=== PATIENT | female | born 1960 | race Caucasian/White ===

== ENCOUNTER 2017-02-28 17:42 | Inpatient (IN) | payer OTHER, SELFPAY ==
[~2017-02-28 17:42] MED LIST: ALLEGRA180 MG; ARTHRITIS PAIN650 M6 PO; CALCIUM 500 +1 EAC7 PO; CALCIUM500 M3 PO; CARBATROL200 MG; COZAAR25 M1 PO; DEPAKOTE ER500 MG; DEPAKOTE ER500 MG PO; DEPO-MEDROL IM; DICLOFENAC SODI75 M2 PO; DIOVAN HCT 160/1 TAB; EC-NAPROSYN500 MG; ESTRACE2 M2 PO; ESTRADIOL1 MG; ESTRADIOL2 MG; FOLIC ACID1 M1 PO; GLUCOSAMINE CH PO; GLUCOSAMINE CH1 EA13 PO; GUMMI BEAR MUL1 EAC1 PO; HUMIRA40 MG/0.1; HUMIRA40 MG/0.2 SC; HYDROCHLOROTHIA25 M1 PO; LEVOTHROID25 MCG; LEVOTHYROXINE25 MC3 PO; LYSINE PO; METHOTREXATE; NAPROXEN SODIU550 MG; PERCOCET 5-3251 EACH PO; PREDNISONE20 M1 PO; PREDNISONE5 MG; PRILOSEC20 M1 PO; PRILOSEC20 MG; PROAIR HFA8.5 GM IH; RITUXAN100 MG/10; TREXALL15 MG; VITAMIN D2000 UNI1 PO; XELJANZ XR11 MG PO; ZOFRAN ODT4 MG/UDTAB PO; ZOFRAN ODT8 MG PO; ZYRTEC10 M7 PO
[2017-02-28] MEDS ORDERED: ACTEMRA162 MG/0.1 SC (18:14)
[2017-02-28 18:59] LABS: HGB-HEMOGLOBIN 15.1 gm/dl (12.0-15.5); MCH (MEAN CORPUSCULAR HGB) 29.3 pg (28.0-32.0); MCHC MEAN CORPUSCULAR HGB CONC 34.3 % (32.0-36.0); MCV (MEAN CELL VOLUME) 85.4 fl (82.0-96.0); MEAN PLATELET VOLUME 9.8 cmc (9.4-12.4); PLATELET COUNT 410 tho/cmm (150-450); RED BLOOD COUNT 5.15 mil/cmm (4.00-5.20); RED CELL DISTRIBUTION WIDTH 15.4 % (12.4-16.4); WHITE BLOOD COUNT 24.1 tho/cmm (4.0-10.0)
[2017-02-28 19:05] LABS: URINE BILIRUBIN NEGATIVE (NEG); URINE BLOOD NEGATIVE (NEG); URINE GLUCOSE (UA) NEGATIVE (NEG); URINE KETONE NEGATIVE (NEG); URINE LEUKOCYTE ESTERASE NEGATIVE (NEG); URINE NITRITE NEGATIVE (NEG); URINE PROTEIN NEGATIVE (NEG); URINE SPECIFIC GRAVITY 1.005 (1.003-1.030)
[2017-02-28 19:10] LABS: ALBUMIN 3.7 g/dl (3.5-5.0); ALKALINE PHOSPHATASE 69 U/L (33-138); ALT/SGPT 22 U/L (12-78); ANION GAP 16 mmol/L (0-20); AST/SGOT 15 U/L (10-40); BILIRUBIN,TOTAL 0.5 mg/dl (0-1.5); BLOOD UREA NITROGEN 11 mg/dl (6-24); CALCIUM 8.8 mg/dl (8.5-10.5); CARBON DIOXIDE-VENOUS 25 mmol/L (22-32); CHLORIDE 101 mmol/l (96-110); CREATININE 0.75 mg/dl (0.50-1.10); GLUCOSE 87 mg/dL (70-110); LIPASE 87 U/L (73-393); POTASSIUM 3.6 mmol/L (3.7-5.1); SODIUM 138 mmol/L (135-145); eGFR VALUE FOR BLACK >90 mL/Min
[2017-02-28 19:10] LABS: URINE APPEARANCE CLEAR; URINE COLOR YELLOW
[2017-02-28 19:15] LABS: BAND % 12 % (0-20); BAND ABSOLUTE COUNT 2.9 tho/cmm (0-2.0)
[2017-02-28] MEDS ORDERED: BYSTOLIC5 M1 PO (22:24)
[2017-03-01 00:30] LABS: C-REACTIVE PROTEIN 0.9 mg/dl (0-0.9); MAGNESIUM 1.8 mg/dl (1.8-2.6)
[2017-03-01 00:41] LABS: PROCALCITONIN <0.05 ng/ml (0.05-0.09)
[2017-03-01 04:42] LABS: ANION GAP 13 mmol/L (0-20); BLOOD UREA NITROGEN 8 mg/dl (6-24); CALCIUM 7.6 mg/dl (8.5-10.5); CARBON DIOXIDE-VENOUS 29 mmol/L (22-32); CHLORIDE 103 mmol/l (96-110); CREATININE 0.76 mg/dl (0.50-1.10); GLUCOSE 100 mg/dL (70-110); SODIUM 141 mmol/L (135-145); eGFR VALUE FOR BLACK >90 mL/Min
[2017-03-01 04:50] LABS: BASO % 0.3 % (0-2); BASO ABSOLUTE COUNT 0.1 tho/cmm (0.0-0.2); EOS % 0.7 % (0-7); EOSINOPHIL ABSOLUTE COUNT 0.1 tho/cmm (0.0-0.7); HCT-HEMATOCRIT 38.3 % (34.0-49.0); HGB-HEMOGLOBIN 12.6 gm/dl (12.0-15.5); IMMATURE GRANULOCYTES ABSOLUTE 0.04 tho/cmm (0-0.03); IMMATURE GRANULOCYTES PERCENT 0.2 % (0-0.3); LYMPH ABSOLUTE COUNT 1.1 tho/cmm (0.8-4.5); MCH (MEAN CORPUSCULAR HGB) 28.6 pg (28.0-32.0); MCHC MEAN CORPUSCULAR HGB CONC 32.9 % (32.0-36.0); MCV (MEAN CELL VOLUME) 86.8 fl (82.0-96.0); MEAN PLATELET VOLUME 9.6 cmc (9.4-12.4); MONO % 5.1 % (0-12); MONOCYTE ABSOLUTE COUNT 0.8 tho/cmm (0.0-1.2); NEUTROPHIL ABSOLUTE COUNT 14.1 tho/cmm (1.6-8.0); NEUTROPHIL-AUTOMATED 14.1 tho/cmm (1.6-8.0); NEUTROPHILS % 86.7 % (40-80); PLATELET COUNT 364 tho/cmm (150-450); RED BLOOD COUNT 4.41 mil/cmm (4.00-5.20); RED CELL DISTRIBUTION WIDTH 15.5 % (12.4-16.4); WHITE BLOOD COUNT 16.3 tho/cmm (4.0-10.0)
[2017-03-01 04:59] LABS: POTASSIUM 4.3 mmol/L (3.7-5.1)
[2017-03-01] MEDS ORDERED: PREDNISONE5 M1 PO (10:48)
[2017-03-02 04:32] LABS: BASO % 0.6 % (0-2); BASO ABSOLUTE COUNT 0.1 tho/cmm (0.0-0.2); EOS % 1.1 % (0-7); EOSINOPHIL ABSOLUTE COUNT 0.2 tho/cmm (0.0-0.7); HGB-HEMOGLOBIN 13.2 gm/dl (12.0-15.5); IMMATURE GRANULOCYTES ABSOLUTE 0.03 tho/cmm (0-0.03); IMMATURE GRANULOCYTES PERCENT 0.2 % (0-0.3); LYMPH % 15.2 % (20-45); LYMPH ABSOLUTE COUNT 2.1 tho/cmm (0.8-4.5); MCH (MEAN CORPUSCULAR HGB) 28.6 pg (28.0-32.0); MCV (MEAN CELL VOLUME) 86.8 fl (82.0-96.0); MEAN PLATELET VOLUME 9.6 cmc (9.4-12.4); MONO % 8.3 % (0-12); MONOCYTE ABSOLUTE COUNT 1.1 tho/cmm (0.0-1.2); NEUTROPHIL ABSOLUTE COUNT 10.2 tho/cmm (1.6-8.0); NEUTROPHIL-AUTOMATED 10.2 tho/cmm (1.6-8.0); NEUTROPHILS % 74.6 % (40-80); PLATELET COUNT 342 tho/cmm (150-450); RED BLOOD COUNT 4.61 mil/cmm (4.00-5.20); RED CELL DISTRIBUTION WIDTH 15.8 % (12.4-16.4); WHITE BLOOD COUNT 13.6 tho/cmm (4.0-10.0)
[2017-03-02 04:38] LABS: ANION GAP 12 mmol/L (0-20); BLOOD UREA NITROGEN 10 mg/dl (6-24); CALCIUM 7.7 mg/dl (8.5-10.5); CARBON DIOXIDE-VENOUS 24 mmol/L (22-32); CHLORIDE 106 mmol/l (96-110); CREATININE 0.71 mg/dl (0.50-1.10); GLUCOSE 94 mg/dL (70-110); SODIUM 138 mmol/L (135-145); eGFR VALUE FOR BLACK >90 mL/Min
[2017-03-02 05:10] LABS: POTASSIUM 3.8 mmol/L (3.7-5.1)
[2017-03-03 04:35] LABS: BASO % 0.6 % (0-2); BASO ABSOLUTE COUNT 0.1 tho/cmm (0.0-0.2); EOS % 2.1 % (0-7); EOSINOPHIL ABSOLUTE COUNT 0.2 tho/cmm (0.0-0.7); HGB-HEMOGLOBIN 11.5 gm/dl (12.0-15.5); IMMATURE GRANULOCYTES ABSOLUTE 0.02 tho/cmm (0-0.03); IMMATURE GRANULOCYTES PERCENT 0.3 % (0-0.3); LYMPH ABSOLUTE COUNT 1.4 tho/cmm (0.8-4.5); MCH (MEAN CORPUSCULAR HGB) 28.6 pg (28.0-32.0); MCHC MEAN CORPUSCULAR HGB CONC 32.9 % (32.0-36.0); MCV (MEAN CELL VOLUME) 87.1 fl (82.0-96.0); MEAN PLATELET VOLUME 9.1 cmc (9.4-12.4); MONO % 12.2 % (0-12); NEUTROPHIL ABSOLUTE COUNT 5.3 tho/cmm (1.6-8.0); NEUTROPHIL-AUTOMATED 5.3 tho/cmm (1.6-8.0); NEUTROPHILS % 66.8 % (40-80); PLATELET COUNT 346 tho/cmm (150-450); RED BLOOD COUNT 4.02 mil/cmm (4.00-5.20); RED CELL DISTRIBUTION WIDTH 15.6 % (12.4-16.4)
[2017-03-03 04:48] LABS: ANION GAP 12 mmol/L (0-20); BLOOD UREA NITROGEN 5 mg/dl (6-24); CALCIUM 6.9 mg/dl (8.5-10.5); CARBON DIOXIDE-VENOUS 25 mmol/L (22-32); CHLORIDE 108 mmol/l (96-110); CREATININE 0.66 mg/dl (0.50-1.10); GLUCOSE 95 mg/dL (70-110); POTASSIUM 3.1 mmol/L (3.7-5.1); SODIUM 142 mmol/L (135-145); eGFR VALUE FOR BLACK >90 mL/Min
[2017-03-05 05:32] LABS: ANION GAP 9 mmol/L (0-20); BLOOD UREA NITROGEN 3 mg/dl (6-24); CALCIUM 7.9 mg/dl (8.5-10.5); CARBON DIOXIDE-VENOUS 30 mmol/L (22-32); CHLORIDE 107 mmol/l (96-110); CREATININE 0.64 mg/dl (0.50-1.10); GLUCOSE 107 mg/dL (70-110); POTASSIUM 3.4 mmol/L (3.7-5.1); SODIUM 143 mmol/L (135-145); eGFR VALUE FOR BLACK >90 mL/Min
[2017-03-05 10:00] LABS: MAGNESIUM 2.1 mg/dl (1.8-2.6)
[2017-03-05 10:03] LABS: TSH-THYROID STIMULATING HORM. 3.12 uIU/ml (0.40-3.80)
[2017-03-05] MEDS ORDERED: FLAGYL500 M1 PO (11:17)
[2017-03-05] MEDS ORDERED: LOPRESSOR50 M1 PO (11:18)
[2017-03-05] MEDS ORDERED: LOPERAMIDE2 M3 PO (11:24)
[2017-05-11] MEDS ORDERED: DICLOFENAC SODI75 M2 PO (14:18)
[2017-05-11] MEDS ORDERED: CELEBREX200 M1 PO (14:18)
[2017-05-11] MEDS ORDERED: LOPERAMIDE2 M2 PO (15:25)
[2017-05-11] MEDS ORDERED: PREDNISONE5 M1 PO (15:25)
[2017-08-03] MEDS ORDERED: PREVALITE PACKET4 GM PO (09:30)
[2017-08-03] MEDS ORDERED: DICLOFENAC SODI75 M2 PO (09:33)
[2017-08-04] MEDS ORDERED: BENTYL10 M1 PO (14:59)
[2017-08-04] MEDS ORDERED: VANCOMYCIN HCL500 MG PO (14:59)
== END 2017-03-05 12:28 | DRG 395 ==
LOC: EDMED 17:42 → EMR2 23:08 → 5WF 03-01 00:05 → PCUB 03-04 17:15
PROVIDERS: Emergency Medicine; Family Medicine; Internal Medicine; Internal Medicine Interventional Cardiology; Physician Assistant; ADMIT Hospitalist
PROC: 0DBG8ZX Excision of Left Large Intestine, Via Natural or Artificial Opening Endoscopic, Diagnostic (ICD-10-PCS; principal; 2017-03-02)
DX: K55.9 Vascular disorder of intestine, unspecified (principal); I48.0 Paroxysmal atrial fibrillation; I10 Essential (primary) hypertension; M06.9 Rheumatoid arthritis, unspecified; E74.10 Disorder of fructose metabolism, unspecified; J45.909 Unspecified asthma, uncomplicated; E87.6 Hypokalemia; Z88.5 Allergy status to narcotic agent; Z79.899 Other long term (current) drug therapy
CPT/HCPCS: G0500; J1170; J1956; J2250; J2405; J2543; J3010; J3475; J7030; Q9967

== ENCOUNTER 2017-04-11 12:36 | Inpatient (IN) | payer OTHER, SELFPAY ==
[~2017-04-11 12:36] MED LIST changes: +ACTEMRA162 MG/0.1 SC; +BYSTOLIC5 M1 PO; +FLAGYL500 M1 PO; +LOPERAMIDE2 M3 PO; +LOPRESSOR50 M1 PO; +PREDNISONE5 M1 PO
[2017-04-11] MEDS ORDERED: POTASSIUM99 M5 PO (12:54)
[2017-04-11] MEDS ORDERED: MAGNESIUM250 M2 PO (12:55)
[2017-04-11] MEDS ORDERED: FLORASTOR PO (12:56)
[2017-04-11 13:41] LABS: BASO % 0.2 % (0-2); EOS % 0.5 % (0-7); EOSINOPHIL ABSOLUTE COUNT 0.1 tho/cmm (0.0-0.7); HCT-HEMATOCRIT 40.6 % (34.0-49.0); IMMATURE GRANULOCYTES ABSOLUTE 0.07 tho/cmm (0-0.03); IMMATURE GRANULOCYTES PERCENT 0.4 % (0-0.3); LYMPH % 2.4 % (20-45); LYMPH ABSOLUTE COUNT 0.4 tho/cmm (0.8-4.5); MCH (MEAN CORPUSCULAR HGB) 29.9 pg (28.0-32.0); MCHC MEAN CORPUSCULAR HGB CONC 34.5 % (32.0-36.0); MCV (MEAN CELL VOLUME) 86.8 fl (82.0-96.0); MEAN PLATELET VOLUME 9.7 cmc (9.4-12.4); MONO % 0.5 % (0-12); MONOCYTE ABSOLUTE COUNT 0.1 tho/cmm (0.0-1.2); NEUTROPHIL ABSOLUTE COUNT 16.9 tho/cmm (1.6-8.0); NEUTROPHIL-AUTOMATED 16.9 tho/cmm (1.6-8.0); PLATELET COUNT 359 tho/cmm (150-450); RED BLOOD COUNT 4.68 mil/cmm (4.00-5.20); RED CELL DISTRIBUTION WIDTH 13.9 % (12.4-16.4); WHITE BLOOD COUNT 17.6 tho/cmm (4.0-10.0)
[2017-04-11 14:05] LABS: ALB/GLOB RATIO 0.7 (0.8-2.0); ALBUMIN 2.9 g/dl (3.5-5.0); ALKALINE PHOSPHATASE 78 U/L (33-138); ALT/SGPT 19 U/L (12-78); BILIRUBIN,TOTAL 0.3 mg/dl (0-1.5); BLOOD UREA NITROGEN 12 mg/dl (6-24); C-REACTIVE PROTEIN 2.6 mg/dl (0-0.9); CALCIUM 8.7 mg/dl (8.5-10.5); CARBON DIOXIDE-VENOUS 24 mmol/L (22-32); CHLORIDE 101 mmol/l (96-110); CREATININE 0.73 mg/dl (0.50-1.10); LIPASE 92 U/L (73-393); SODIUM 138 mmol/L (135-145); eGFR VALUE FOR BLACK >90 mL/Min
[2017-04-11 14:10] LABS: ANION GAP 16 mmol/L (0-20); POTASSIUM 3.4 mmol/L (3.7-5.1)
[2017-04-11 14:11] LABS: AST/SGOT 25 U/L (10-40)
[2017-04-11 14:12] LABS: GLUCOSE 69 mg/dL (70-110)
[2017-04-11 15:29] LABS: URINE BILIRUBIN NEGATIVE (NEG); URINE BLOOD NEGATIVE (NEG); URINE GLUCOSE (UA) SMALL (NEG); URINE KETONE NEGATIVE (NEG); URINE LEUKOCYTE ESTERASE NEGATIVE (NEG); URINE NITRITE NEGATIVE (NEG); URINE PH 6.5 (5.0-8.0); URINE PROTEIN NEGATIVE (NEG); URINE SPECIFIC GRAVITY 1.005 (1.003-1.030)
[2017-04-11 15:31] LABS: URINE APPEARANCE CLEAR; URINE COLOR YELLOW
[2017-04-11 20:41] LABS: INR 0.9 INR (0.9-1.1)
[2017-04-11 21:08] LABS: PROCALCITONIN 1.71 ng/ml (0.05-0.09)
[2017-04-12 00:15] LABS: POTASSIUM 3.7 mmol/L (3.7-5.1)
[2017-04-12 01:05] LABS: ABG CO2 ARTERIAL 24 mmol/L (21-27); ARTERIAL BLD GAS O2 SATURATION 95 % (95-98); ARTERIAL BLOOD GAS PCO2 38 mmHg (32-45); ARTERIAL PO2 80 mmHg (70-100); BICARBONATE 23 mmol/L (21-28); BLOOD GAS BASE EXCESS -1 mM/L (-/+3); PH 7.39 Units (7.35-7.45)
[2017-04-12 05:09] LABS: BASO % 0.3 % (0-2); BASO ABSOLUTE COUNT 0.1 tho/cmm (0.0-0.2); EOS % 0.5 % (0-7); EOSINOPHIL ABSOLUTE COUNT 0.1 tho/cmm (0.0-0.7); HCT-HEMATOCRIT 33.1 % (34.0-49.0); HGB-HEMOGLOBIN 10.9 gm/dl (12.0-15.5); IMMATURE GRANULOCYTES ABSOLUTE 0.04 tho/cmm (0-0.03); IMMATURE GRANULOCYTES PERCENT 0.2 % (0-0.3); LYMPH % 4.9 % (20-45); LYMPH ABSOLUTE COUNT 0.9 tho/cmm (0.8-4.5); MCH (MEAN CORPUSCULAR HGB) 28.5 pg (28.0-32.0); MCHC MEAN CORPUSCULAR HGB CONC 32.9 % (32.0-36.0); MCV (MEAN CELL VOLUME) 86.6 fl (82.0-96.0); MEAN PLATELET VOLUME 9.4 cmc (9.4-12.4); MONO % 4.3 % (0-12); MONOCYTE ABSOLUTE COUNT 0.8 tho/cmm (0.0-1.2); NEUTROPHIL ABSOLUTE COUNT 16.1 tho/cmm (1.6-8.0); NEUTROPHIL-AUTOMATED 16.1 tho/cmm (1.6-8.0); NEUTROPHILS % 89.8 % (40-80); PLATELET COUNT 380 tho/cmm (150-450); RED BLOOD COUNT 3.82 mil/cmm (4.00-5.20); WHITE BLOOD COUNT 17.9 tho/cmm (4.0-10.0)
[2017-04-12 05:25] LABS: ANION GAP 12 mmol/L (0-20); BLOOD UREA NITROGEN 4 mg/dl (6-24); CALCIUM 7.3 mg/dl (8.5-10.5); CARBON DIOXIDE-VENOUS 24 mmol/L (22-32); CHLORIDE 108 mmol/l (96-110); CREATININE 0.58 mg/dl (0.50-1.10); POTASSIUM 3.3 mmol/L (3.7-5.1); SODIUM 141 mmol/L (135-145); eGFR VALUE FOR BLACK >90 mL/Min
[2017-04-12 05:33] LABS: GLUCOSE 116 mg/dL (70-110)
[2017-04-13 05:18] LABS: BASO % 0.4 % (0-2); BASO ABSOLUTE COUNT 0.1 tho/cmm (0.0-0.2); EOS % 1.1 % (0-7); EOSINOPHIL ABSOLUTE COUNT 0.1 tho/cmm (0.0-0.7); HCT-HEMATOCRIT 33.2 % (34.0-49.0); HGB-HEMOGLOBIN 10.9 gm/dl (12.0-15.5); IMMATURE GRANULOCYTES ABSOLUTE 0.04 tho/cmm (0-0.03); IMMATURE GRANULOCYTES PERCENT 0.3 % (0-0.3); LYMPH % 9.2 % (20-45); LYMPH ABSOLUTE COUNT 1.1 tho/cmm (0.8-4.5); MCH (MEAN CORPUSCULAR HGB) 28.7 pg (28.0-32.0); MCHC MEAN CORPUSCULAR HGB CONC 32.8 % (32.0-36.0); MCV (MEAN CELL VOLUME) 87.4 fl (82.0-96.0); MEAN PLATELET VOLUME 9.4 cmc (9.4-12.4); MONO % 8.6 % (0-12); MONOCYTE ABSOLUTE COUNT 1.1 tho/cmm (0.0-1.2); NEUTROPHILS % 80.4 % (40-80); PLATELET COUNT 351 tho/cmm (150-450); RED CELL DISTRIBUTION WIDTH 14.2 % (12.4-16.4); WHITE BLOOD COUNT 12.4 tho/cmm (4.0-10.0)
[2017-04-13 05:27] LABS: ALB/GLOB RATIO 0.7 (0.8-2.0); ALBUMIN 2.4 g/dl (3.5-5.0); ALKALINE PHOSPHATASE 68 U/L (33-138); ALT/SGPT 18 U/L (12-78); ANION GAP 13 mmol/L (0-20); AST/SGOT 13 U/L (10-40); BILIRUBIN,TOTAL 0.3 mg/dl (0-1.5); BLOOD UREA NITROGEN 3 mg/dl (6-24); CALCIUM 7.4 mg/dl (8.5-10.5); CARBON DIOXIDE-VENOUS 24 mmol/L (22-32); CHLORIDE 107 mmol/l (96-110); CREATININE 0.64 mg/dl (0.50-1.10); GLUCOSE 86 mg/dL (70-110); POTASSIUM 3.3 mmol/L (3.7-5.1); SODIUM 141 mmol/L (135-145); eGFR VALUE FOR BLACK >90 mL/Min
--- NOTE | 2017-04-13 22:06 | NUR ---
VIRTUAL CARE NOTE: PT. IN BED, HAS HAD A LOT OF NAUSEA AND LOOSE STOOLS THROUGHOUT THE DAY, AND IS FEELING BETTER AT THIS TIME. HAS BEEN ABLE TO TOLERATE HER CLEAR LIQUIDS. HAS WALKED TO THE BR OFTEN. ENCOURGED IF ABLE TO AMBULATE IN THE HALLWAYS. EDUCATION PROVIDED ON VIRTUAL CARE NURSING. INSTRUCTED TO CALL FOR FUTURE NEEDS. STATES VERBAL AGREEMENT.
[2017-04-14 06:29] LABS: BASO % 0.5 % (0-2); EOS % 1.4 % (0-7); EOSINOPHIL ABSOLUTE COUNT 0.1 tho/cmm (0.0-0.7); HCT-HEMATOCRIT 30.6 % (34.0-49.0); IMMATURE GRANULOCYTES ABSOLUTE 0.02 tho/cmm (0-0.03); IMMATURE GRANULOCYTES PERCENT 0.2 % (0-0.3); LYMPH % 15.7 % (20-45); LYMPH ABSOLUTE COUNT 1.4 tho/cmm (0.8-4.5); MCH (MEAN CORPUSCULAR HGB) 28.5 pg (28.0-32.0); MCHC MEAN CORPUSCULAR HGB CONC 32.7 % (32.0-36.0); MCV (MEAN CELL VOLUME) 87.2 fl (82.0-96.0); MEAN PLATELET VOLUME 9.6 cmc (9.4-12.4); MONO % 8.4 % (0-12); MONOCYTE ABSOLUTE COUNT 0.7 tho/cmm (0.0-1.2); NEUTROPHIL ABSOLUTE COUNT 6.4 tho/cmm (1.6-8.0); NEUTROPHIL-AUTOMATED 6.4 tho/cmm (1.6-8.0); NEUTROPHILS % 73.8 % (40-80); PLATELET COUNT 319 tho/cmm (150-450); RED BLOOD COUNT 3.51 mil/cmm (4.00-5.20); WHITE BLOOD COUNT 8.6 tho/cmm (4.0-10.0)
[2017-04-14 06:42] LABS: ANION GAP 12 mmol/L (0-20); BLOOD UREA NITROGEN 6 mg/dl (6-24); CALCIUM 7.3 mg/dl (8.5-10.5); CARBON DIOXIDE-VENOUS 26 mmol/L (22-32); CHLORIDE 108 mmol/l (96-110); CREATININE 0.55 mg/dl (0.50-1.10); GLUCOSE 78 mg/dL (70-110); POTASSIUM 3.1 mmol/L (3.7-5.1); SODIUM 143 mmol/L (135-145); eGFR VALUE FOR BLACK >90 mL/Min
[2017-04-14 10:49] LABS: URINE BILIRUBIN NEGATIVE (NEG); URINE BLOOD NEGATIVE (NEG); URINE GLUCOSE (UA) NEGATIVE (NEG); URINE KETONE MODERATE (NEG); URINE LEUKOCYTE ESTERASE NEGATIVE (NEG); URINE NITRITE NEGATIVE (NEG); URINE PROTEIN SMALL (NEG)
[2017-04-14 10:55] LABS: URINE APPEARANCE CLEAR; URINE COLOR YELLOW
[2017-04-14 11:01] LABS: URINE RBC 0-2 /[HPF] (0-5)
[2017-04-16 06:12] LABS: ANION GAP 13 mmol/L (0-20); BLOOD UREA NITROGEN 4 mg/dl (6-24); CARBON DIOXIDE-VENOUS 24 mmol/L (22-32); CHLORIDE 106 mmol/l (96-110); CREATININE 0.45 mg/dl (0.50-1.10); POTASSIUM 3.8 mmol/L (3.7-5.1); SODIUM 139 mmol/L (135-145); eGFR VALUE FOR BLACK >90 mL/Min
[2017-04-16 06:19] LABS: GLUCOSE 64 mg/dL (70-110)
--- NOTE | 2017-04-16 16:02 | NUR ---
1205 RECIEVED FROM 5TH FLOOR DUE TO HEARTRATE UP TO 170 AFIB, ORDERS TO GIVE CARDIZEM, STARTED TO PUSH CARDIZEM AND PER DR FONTAINE MAGALIS WANTED ANOTHER DRUG GIVEN 1ST. STOPPED BOLUS AFTER 5MG CARDIZEM GIVEN AND CLARIFIED AND CORVERT 1 MG GIVEN OVER 10MIN AND AFTER 10 MIN CONTINUE TO HAVE AFIB IRREGULAR UP TO 120, REPEATED CORVERT AND AFTER 30MIN MINIMAL RESULTS, CALLED TO [facility] AND ORDER NOTED TO BOLUS 20 CARDIZEM AND START DRIP AT 10MG. 1350 BOLUS AND DRIP OF CARIDZEM GIVEN AND AT 10MIN. 140O HR NOW DIPS TO 30-50 AND BACK UP AND THEN CONVERTED TO 58 AND BELOW 60 CONSISTENTLY AND STOPPED CARDIZEM GTT, NOTIFIED [facility] RE THIS AND HR NOW SINUS IN MID 50'S.
[2017-04-17 12:20] LABS: ALB/GLOB RATIO 0.6 (0.8-2.0); ALBUMIN 2.4 g/dl (3.5-5.0); ALKALINE PHOSPHATASE 81 U/L (33-138); ALT/SGPT 19 U/L (12-78); ANION GAP 12 mmol/L (0-20); AST/SGOT 15 U/L (10-40); BILIRUBIN,TOTAL 0.2 mg/dl (0-1.5); BLOOD UREA NITROGEN 6 mg/dl (6-24); CALCIUM 8.4 mg/dl (8.5-10.5); CARBON DIOXIDE-VENOUS 27 mmol/L (22-32); CHLORIDE 106 mmol/l (96-110); CREATININE 0.48 mg/dl (0.50-1.10); GLUCOSE 86 mg/dL (70-110); MAGNESIUM 1.8 mg/dl (1.8-2.6); PHOSPHOROUS 2.1 mg/dl (2.5-4.9); POTASSIUM 3.6 mmol/L (3.7-5.1); SODIUM 141 mmol/L (135-145); eGFR VALUE FOR BLACK >90 mL/Min
[2017-04-17] MEDS ORDERED: ASPIRIN EC81 MG PO (14:15)
[2017-04-17] MEDS ORDERED: ULTRAM50 M1 PO (14:15)
[2017-04-17] MEDS ORDERED: FLECAINIDE ACET50 M1 PO (14:16)
[2017-04-17] MEDS ORDERED: ELIQUIS5 M1 PO (14:18)
[2017-05-11] MEDS ORDERED: CELEBREX200 M1 PO (14:18)
[2017-05-11] MEDS ORDERED: DICLOFENAC SODI75 M2 PO (14:18)
[2017-05-11] MEDS ORDERED: PREDNISONE5 M1 PO (15:25)
[2017-05-11] MEDS ORDERED: LOPERAMIDE2 M2 PO (15:25)
[2017-08-03] MEDS ORDERED: PREVALITE PACKET4 GM PO (09:30)
[2017-08-03] MEDS ORDERED: DICLOFENAC SODI75 M2 PO (09:33)
[2017-08-04] MEDS ORDERED: VANCOMYCIN HCL500 MG PO (14:59)
[2017-08-04] MEDS ORDERED: BENTYL10 M1 PO (14:59)
== END 2017-04-17 15:25 | DRG 871 ==
LOC: EDMED 12:36 → EMR2 17:00 → CCU 21:18 → 5WD 04-13 19:30 → CCU 04-16 12:06
PROVIDERS: Emergency Medicine; Family Medicine; Internal Medicine Infectious Disease; Physician Assistant; ADMIT Hospitalist
PROC: 02HV33Z Insertion of Infusion Device into Superior Vena Cava, Percutaneous Approach (ICD-10-PCS; principal; 2017-04-11)
DX: A41.9 Sepsis, unspecified organism (principal); R65.21 Severe sepsis with septic shock; I48.0 Paroxysmal atrial fibrillation; K90.9 Intestinal malabsorption, unspecified; E83.42 Hypomagnesemia; D62 Acute posthemorrhagic anemia; K92.1 Melena; K52.9 Noninfective gastroenteritis and colitis, unspecified; M06.9 Rheumatoid arthritis, unspecified; E87.6 Hypokalemia; K21.9 Gastro-esophageal reflux disease without esophagitis; E03.9 Hypothyroidism, unspecified; R21 Rash and other nonspecific skin eruption
CPT/HCPCS: C1751; J1170; J1742; J2405; J2543; J3370; J3475; J3480; J7030; J7040; Q9967

== ENCOUNTER 2017-04-27 16:19 | Observation (INO) | payer OTHER, SELFPAY ==
[~2017-04-27 16:19] MED LIST changes: +ASPIRIN EC81 MG PO; +ELIQUIS5 M1 PO; +FLECAINIDE ACET50 M1 PO; +FLORASTOR PO; +MAGNESIUM250 M2 PO; +POTASSIUM99 M5 PO; +ULTRAM50 M1 PO
[2017-04-27] MEDS ORDERED: PREDNISONE10 M1 PO (16:28)
[2017-04-27 17:32] LABS: BASO % 0.5 % (0-2); BASO ABSOLUTE COUNT 0.1 tho/cmm (0.0-0.2); EOS % 0.2 % (0-7); HCT-HEMATOCRIT 42.9 % (34.0-49.0); HGB-HEMOGLOBIN 14.4 gm/dl (12.0-15.5); IMMATURE GRANULOCYTES ABSOLUTE 0.03 tho/cmm (0-0.03); IMMATURE GRANULOCYTES PERCENT 0.2 % (0-0.3); LYMPH % 8.7 % (20-45); LYMPH ABSOLUTE COUNT 1.3 tho/cmm (0.8-4.5); MCH (MEAN CORPUSCULAR HGB) 28.7 pg (28.0-32.0); MCHC MEAN CORPUSCULAR HGB CONC 33.6 % (32.0-36.0); MCV (MEAN CELL VOLUME) 85.5 fl (82.0-96.0); MEAN PLATELET VOLUME 9.4 cmc (9.4-12.4); MONO % 5.2 % (0-12); MONOCYTE ABSOLUTE COUNT 0.8 tho/cmm (0.0-1.2); NEUTROPHIL ABSOLUTE COUNT 12.6 tho/cmm (1.6-8.0); NEUTROPHIL-AUTOMATED 12.6 tho/cmm (1.6-8.0); NEUTROPHILS % 85.2 % (40-80); PLATELET COUNT 572 tho/cmm (150-450); RED BLOOD COUNT 5.02 mil/cmm (4.00-5.20); RED CELL DISTRIBUTION WIDTH 13.9 % (12.4-16.4); WHITE BLOOD COUNT 14.7 tho/cmm (4.0-10.0)
[2017-04-27 17:46] LABS: ANION GAP 15 mmol/L (0-20); BLOOD UREA NITROGEN 7 mg/dl (6-24); CALCIUM 9.4 mg/dl (8.5-10.5); CARBON DIOXIDE-VENOUS 25 mmol/L (22-32); CHLORIDE 105 mmol/l (96-110); CREATININE 0.73 mg/dl (0.50-1.10); GLUCOSE 90 mg/dL (70-110); POTASSIUM 4.3 mmol/L (3.7-5.1); SODIUM 141 mmol/L (135-145); eGFR VALUE FOR BLACK >90 mL/Min
[2017-04-27 18:09] LABS: URINE BILIRUBIN NEGATIVE (NEG); URINE BLOOD NEGATIVE (NEG); URINE GLUCOSE (UA) NEGATIVE (NEG); URINE KETONE NEGATIVE (NEG); URINE LEUKOCYTE ESTERASE NEGATIVE (NEG); URINE NITRITE NEGATIVE (NEG); URINE PROTEIN NEGATIVE (NEG)
[2017-04-27 18:10] LABS: URINE APPEARANCE CLEAR; URINE COLOR PALE YELLOW
[2017-04-28 05:49] LABS: BASO % 0.7 % (0-2); BASO ABSOLUTE COUNT 0.1 tho/cmm (0.0-0.2); EOS % 1.4 % (0-7); EOSINOPHIL ABSOLUTE COUNT 0.1 tho/cmm (0.0-0.7); HCT-HEMATOCRIT 36.2 % (34.0-49.0); HGB-HEMOGLOBIN 11.8 gm/dl (12.0-15.5); IMMATURE GRANULOCYTES ABSOLUTE 0.01 tho/cmm (0-0.03); IMMATURE GRANULOCYTES PERCENT 0.1 % (0-0.3); LYMPH % 17.6 % (20-45); LYMPH ABSOLUTE COUNT 1.7 tho/cmm (0.8-4.5); MCH (MEAN CORPUSCULAR HGB) 28.2 pg (28.0-32.0); MCHC MEAN CORPUSCULAR HGB CONC 32.6 % (32.0-36.0); MCV (MEAN CELL VOLUME) 86.4 fl (82.0-96.0); MEAN PLATELET VOLUME 9.4 cmc (9.4-12.4); MONO % 7.5 % (0-12); MONOCYTE ABSOLUTE COUNT 0.7 tho/cmm (0.0-1.2); NEUTROPHILS % 72.7 % (40-80); PLATELET COUNT 527 tho/cmm (150-450); RED BLOOD COUNT 4.19 mil/cmm (4.00-5.20); RED CELL DISTRIBUTION WIDTH 14.1 % (12.4-16.4); WHITE BLOOD COUNT 9.7 tho/cmm (4.0-10.0)
[2017-04-28 05:58] LABS: ANION GAP 10 mmol/L (0-20); BLOOD UREA NITROGEN 5 mg/dl (6-24); CALCIUM 8.2 mg/dl (8.5-10.5); CARBON DIOXIDE-VENOUS 28 mmol/L (22-32); CHLORIDE 108 mmol/l (96-110); CREATININE 0.61 mg/dl (0.50-1.10); GLUCOSE 86 mg/dL (70-110); SODIUM 142 mmol/L (135-145); eGFR VALUE FOR BLACK >90 mL/Min
[2017-04-28 06:08] LABS: POTASSIUM 4.2 mmol/L (3.7-5.1)
[2017-04-29 05:52] LABS: ANION GAP 11 mmol/L (0-20); BLOOD UREA NITROGEN 9 mg/dl (6-24); CALCIUM 8.5 mg/dl (8.5-10.5); CARBON DIOXIDE-VENOUS 26 mmol/L (22-32); CHLORIDE 106 mmol/l (96-110); CREATININE 0.55 mg/dl (0.50-1.10); GLUCOSE 91 mg/dL (70-110); POTASSIUM 3.4 mmol/L (3.7-5.1); SODIUM 140 mmol/L (135-145); eGFR VALUE FOR BLACK >90 mL/Min
[2017-04-29] MEDS ORDERED: VANCOCIN HCL125 MG PO (12:58)
[2017-05-11] MEDS ORDERED: DICLOFENAC SODI75 M2 PO (14:18)
[2017-05-11] MEDS ORDERED: CELEBREX200 M1 PO (14:18)
[2017-05-11] MEDS ORDERED: LOPERAMIDE2 M2 PO (15:25)
[2017-05-11] MEDS ORDERED: PREDNISONE5 M1 PO (15:25)
[2017-08-03] MEDS ORDERED: PREVALITE PACKET4 GM PO (09:30)
[2017-08-03] MEDS ORDERED: DICLOFENAC SODI75 M2 PO (09:33)
[2017-08-04] MEDS ORDERED: VANCOMYCIN HCL500 MG PO (14:59)
[2017-08-04] MEDS ORDERED: BENTYL10 M1 PO (14:59)
== END 2017-04-29 13:20 ==
LOC: EDMED 16:19 → EMR2 20:28 → CAR1 21:25
PROVIDERS: Emergency Medicine; Family Medicine; ADMIT Hospitalist
DX: A04.7 Enterocolitis due to Clostridium difficile (principal); E87.6 Hypokalemia; I10 Essential (primary) hypertension; M06.9 Rheumatoid arthritis, unspecified; Z79.2 Long term (current) use of antibiotics; Z79.82 Long term (current) use of aspirin; Z79.891 Long term (current) use of opiate analgesic; Z79.899 Other long term (current) drug therapy; Z88.6 Allergy status to analgesic agent; Z88.8 Allergy status to other drugs, medicaments and biological substances; Z88.5 Allergy status to narcotic agent
CPT/HCPCS: G0378; J7030; J7512; Q9967